=== PATIENT | female | born 1950 | race Caucasian/White ===

== ENCOUNTER 2017-02-24 10:04 | Inpatient (IN) | payer OTHER, MEDICARE, MEDICAID ==
[2017-02-24] VITALS (12 sets, daily range): BP systolic 102–148; BP diastolic 61–72
[~2017-02-24] VITALS: Ht 162.6 cm; Wt 167.9 kg
[2017-02-24 11:41] LABS: BASOPHIL % 0.2 % (0-2); PLATELET COUNT 215 x10^3mcL (130-400)
[2017-02-24 12:01] LABS: CALCIUM 9.3 mg/dL (8.5-10.1); CARBON DIOXIDE 25.9 mmol/L (21-32); CREATININE SERUM 1.3 mg/dL (0.6-1.0); POTASSIUM SERUM 4.4 mmol/L (3.5-5.1)
[2017-02-24 12:13] LABS: ALBUMIN 3.6 g/dL (3.4-5.0); BILIRUBIN TOTAL 0.54 mg/dL (0.20-1.00); T4(THYROXINE) 5.4 ug/dL (4.7-13.3); TOTAL PROTEIN, SERUM 8.2 g/dL (6.4-8.2)
[2017-02-24] MEDS ORDERED: ATORVASTATIN CA20 M1 PO (12:40)
[2017-02-24] MEDS ORDERED: CEFDINIR300 M1 PO (12:40)
[2017-02-24] MEDS ORDERED: KEFLEX500 M1 PO (12:41)
[2017-02-24] MEDS ORDERED: CELEBREX200 MG PO (12:41)
[2017-02-24] MEDS ORDERED: ZYRTEC10 MG PO (12:41)
[2017-02-24] MEDS ORDERED: ENALAPRIL MALEA20 MG PO (12:42)
[2017-02-24] MEDS ORDERED: DIG125 PO (12:42)
[2017-02-24] MEDS ORDERED: COLACE100 MG PO (12:42)
[2017-02-24] MEDS ORDERED: FLONS (12:43)
[2017-02-24] MEDS ORDERED: LASIX40 MG PO (12:44)
[2017-02-24] MEDS ORDERED: MONTELUKAST SOD10 M1 PO (12:45)
[2017-02-24] MEDS ORDERED: METOPROLOL TART25 M1 PO (12:45)
[2017-02-24] MEDS ORDERED: OMEPRAZOLE40 M1 PO (12:45)
[2017-02-24] MEDS ORDERED: NORCO1 TA2 PO (12:45)
[2017-02-24] MEDS ORDERED: DITROPAN XL5 MG PO (12:46)
[2017-02-24] MEDS ORDERED: XENICAL120 MG PO (12:46)
[2017-02-24] MEDS ORDERED: ZANTAC 150150 MG PO (12:47)
[2017-02-24] MEDS ORDERED: SEREVENT D0.046 MG/1 IH (12:47)
[2017-02-24] MEDS ORDERED: PULMICORT180 MCG/Ac INH (12:47)
[2017-02-24] MEDS ORDERED: PAXIL10 MG PO (12:47)
[2017-02-24] MEDS ORDERED: DYA PO (12:48)
[2017-02-24] MEDS ORDERED: THE300 PO (12:48)
[2017-02-24] MEDS ORDERED: VENTOLIN H0.09 MG/A1 IH (12:49)
[2017-02-24] MEDS ORDERED: XARELTO10 M1 PO (12:49)
[2017-02-24 16:00] LABS: FREE T4 0.96 ng/dL (0.76-1.46); FREE THYROXINE INDEX 1.8 ug/dL (1.4-4.5); T3 TOTAL 0.94 ng/mL; T4(THYROXINE) 5.6 ug/dL (4.7-13.3)
[2017-02-25] VITALS (18 sets, daily range): BP systolic 91–153; BP diastolic 52–107
[2017-02-25 05:46] LABS: PLATELET COUNT 181 x10^3mcL (130-400)
[2017-02-25 05:54] LABS: CALCIUM 8.5 mg/dL (8.5-10.1); CREATININE SERUM 1.1 mg/dL (0.6-1.0); POTASSIUM SERUM 4.8 mmol/L (3.5-5.1)
[2017-02-25 05:59] LABS: BASOPHIL % 0 % (0-2); RED CELL DISTRIBUTION WIDTH 16.8 % (11.5-14.5)
[2017-02-25 16:06] LABS: UA SPECIFIC GRAVITY >=1.030 (1.005-1.035); microscopic required? YES; urine erythrocyte 3+ (NEGATIVE)
[2017-02-25 16:29] LABS: AMPHETAMINE QUAL UR NONE DETECTED (NEG <=1000)
[2017-02-26] VITALS (18 sets, daily range): BP systolic 104–147; BP diastolic 63–83
[2017-02-26 05:46] LABS: PLATELET COUNT 163 x10^3mcL (130-400); RED CELL DISTRIBUTION WIDTH 16.9 % (11.5-14.5)
[2017-02-26 05:47] LABS: BASOPHIL % 0.5 % (0-2)
[2017-02-26 05:48] LABS: CALCIUM 8.6 mg/dL (8.5-10.1); CARBON DIOXIDE 25.3 mmol/L (21-32); CREATININE SERUM 1.1 mg/dL (0.6-1.0); PHOSPHOROUS 2.7 mg/dL (2.5-4.9); POTASSIUM SERUM 4.5 mmol/L (3.5-5.1)
[2017-02-27] VITALS (17 sets, daily range): BP systolic 97–136; BP diastolic 48–86
[2017-02-27 05:31] LABS: BASOPHIL % 1.6 % (0-2); PLATELET COUNT 159 x10^3mcL (130-400)
[2017-02-27 05:36] LABS: RED CELL DISTRIBUTION WIDTH 15.5 % (11.5-14.5)
[2017-02-27 05:54] LABS: CALCIUM 8.7 mg/dL (8.5-10.1); CARBON DIOXIDE 25.2 mmol/L (21-32); CHLORIDE SERUM 103 mmol/L (98-107); CREATININE SERUM 0.9 mg/dL (0.6-1.0); GFR1 > 60 mL/min; GLUCOSE SERUM 159 mg/dL (74-106); MAGNESIUM 1.6 mg/dL (1.8-2.4); PHOSPHOROUS 2.2 mg/dL (2.5-4.9); POTASSIUM SERUM 3.8 mmol/L (3.5-5.1); SODIUM SERUM 136 mmol/L (136-145)
[2017-02-28] VITALS (17 sets, daily range): BP systolic 98–149; BP diastolic 50–82
[2017-02-28 05:50] LABS: BASOPHIL % 0.5 % (0-2); CALCIUM 8.6 mg/dL (8.5-10.1); CARBON DIOXIDE 26.8 mmol/L (21-32); CHLORIDE SERUM 102 mmol/L (98-107); CREATININE SERUM 0.8 mg/dL (0.6-1.0); GFR1 > 60 mL/min; GLUCOSE SERUM 166 mg/dL (74-106); MAGNESIUM 1.7 mg/dL (1.8-2.4); PHOSPHOROUS 2.4 mg/dL (2.5-4.9); PLATELET COUNT 153 x10^3mcL (130-400); POTASSIUM SERUM 3.4 mmol/L (3.5-5.1); SODIUM SERUM 137 mmol/L (136-145)
[2017-02-28 05:54] LABS: RED CELL DISTRIBUTION WIDTH 16.4 % (11.5-14.5)
[2017-03-01] VITALS (19 sets, daily range): BP systolic 83–151; BP diastolic 48–86
[2017-03-01 05:31] LABS: BASOPHIL % 0.7 % (0-2); PLATELET COUNT 179 x10^3mcL (130-400)
[2017-03-01 05:33] LABS: RED CELL DISTRIBUTION WIDTH 16.1 % (11.5-14.5)
[2017-03-01 05:43] LABS: CALCIUM 8.9 mg/dL (8.5-10.1); CARBON DIOXIDE 28.6 mmol/L (21-32); CHLORIDE SERUM 102 mmol/L (98-107); CREATININE SERUM 0.9 mg/dL (0.6-1.0); GFR1 > 60 mL/min; GLUCOSE SERUM 131 mg/dL (74-106); MAGNESIUM 1.8 mg/dL (1.8-2.4); PHOSPHOROUS 3.1 mg/dL (2.5-4.9); POTASSIUM SERUM 3.9 mmol/L (3.5-5.1); SODIUM SERUM 137 mmol/L (136-145)
[2017-03-02] VITALS (17 sets, daily range): BP systolic 98–159; BP diastolic 58–89
[2017-03-02 05:39] LABS: BASOPHIL % 0.6 % (0-2); PLATELET COUNT 235 x10^3mcL (130-400)
[2017-03-02 06:01] LABS: CALCIUM 9.1 mg/dL (8.5-10.1); CARBON DIOXIDE 30.7 mmol/L (21-32); CHLORIDE SERUM 101 mmol/L (98-107); CREATININE SERUM 0.9 mg/dL (0.6-1.0); GFR1 > 60 mL/min; GLUCOSE SERUM 145 mg/dL (74-106); MAGNESIUM 1.9 mg/dL (1.8-2.4); PHOSPHOROUS 3.3 mg/dL (2.5-4.9); POTASSIUM SERUM 3.6 mmol/L (3.5-5.1); SODIUM SERUM 139 mmol/L (136-145)
[2017-03-03] VITALS (19 sets, daily range): BP systolic 83–153; BP diastolic 48–98
[2017-03-03 07:15] LABS: CALCIUM 9.1 mg/dL (8.5-10.1); CARBON DIOXIDE 28.6 mmol/L (21-32); CHLORIDE SERUM 103 mmol/L (98-107); CREATININE SERUM 0.8 mg/dL (0.6-1.0); GFR1 > 60 mL/min; GLUCOSE SERUM 129 mg/dL (74-106); PHOSPHOROUS 3.2 mg/dL (2.5-4.9); POTASSIUM SERUM 3.6 mmol/L (3.5-5.1); SODIUM SERUM 139 mmol/L (136-145)
[2017-03-03 09:23] LABS: PLATELET COUNT 224 x10^3mcL (130-400); RED CELL DISTRIBUTION WIDTH 16.1 % (11.5-14.5)
[2017-03-03 09:24] LABS: BASOPHIL % 0.6 % (0-2)
[2017-03-04] VITALS (17 sets, daily range): BP systolic 91–167; BP diastolic 46–99
[2017-03-04 05:30] LABS: BASOPHIL % 1.1 % (0-2); PLATELET COUNT 252 x10^3mcL (130-400)
[2017-03-04 05:39] LABS: CALCIUM 8.8 mg/dL (8.5-10.1); CARBON DIOXIDE 29.8 mmol/L (21-32); CHLORIDE SERUM 102 mmol/L (98-107); CREATININE SERUM 0.8 mg/dL (0.6-1.0); GFR1 > 60 mL/min; GLUCOSE SERUM 140 mg/dL (74-106); MAGNESIUM 1.9 mg/dL (1.8-2.4); PHOSPHOROUS 3.3 mg/dL (2.5-4.9); POTASSIUM SERUM 3.4 mmol/L (3.5-5.1); SODIUM SERUM 138 mmol/L (136-145)
[2017-03-05] VITALS (18 sets, daily range): BP systolic 97–153; BP diastolic 52–86
[2017-03-05 05:02] LABS: CALCIUM 8.9 mg/dL (8.5-10.1); CARBON DIOXIDE 31.7 mmol/L (21-32); CHLORIDE SERUM 104 mmol/L (98-107); CREATININE SERUM 0.9 mg/dL (0.6-1.0); GFR1 > 60 mL/min; GLUCOSE SERUM 92 mg/dL (74-106); PHOSPHOROUS 3.1 mg/dL (2.5-4.9); POTASSIUM SERUM 3.4 mmol/L (3.5-5.1); SODIUM SERUM 141 mmol/L (136-145)
[2017-03-05 05:04] LABS: BASOPHIL % 1.2 % (0-2); PLATELET COUNT 253 x10^3mcL (130-400); RED CELL DISTRIBUTION WIDTH 15.9 % (11.5-14.5)
[2017-03-06] VITALS (19 sets, daily range): BP systolic 85–147; BP diastolic 43–91
[2017-03-06 05:34] LABS: BASOPHIL % 0.2 % (0-2); PLATELET COUNT 288 x10^3mcL (130-400)
[2017-03-06 05:41] LABS: RED CELL DISTRIBUTION WIDTH 16.2 % (11.5-14.5)
[2017-03-06 05:53] LABS: CALCIUM 8.8 mg/dL (8.5-10.1); CARBON DIOXIDE 32.1 mmol/L (21-32); CHLORIDE SERUM 102 mmol/L (98-107); CREATININE SERUM 0.9 mg/dL (0.6-1.0); GFR1 > 60 mL/min; GLUCOSE SERUM 143 mg/dL (74-106); PHOSPHOROUS 2.8 mg/dL (2.5-4.9); POTASSIUM SERUM 3.2 mmol/L (3.5-5.1); SODIUM SERUM 135 mmol/L (136-145)
[2017-03-07] VITALS (15 sets, daily range): BP systolic 82–167; BP diastolic 49–99; Ht 162.6 cm; Wt 167.9 kg
[2017-03-07 06:18] LABS: BASOPHIL % 0.6 % (0-2); PLATELET COUNT 274 x10^3mcL (130-400)
[2017-03-07 06:47] LABS: RED CELL DISTRIBUTION WIDTH 15.7 % (11.5-14.5)
[2017-03-07 07:09] LABS: CALCIUM 8.4 mg/dL (8.5-10.1); CARBON DIOXIDE 29.9 mmol/L (21-32); CHLORIDE SERUM 105 mmol/L (98-107); CREATININE SERUM 0.7 mg/dL (0.6-1.0); GFR1 > 60 mL/min; GLUCOSE SERUM 109 mg/dL (74-106); MAGNESIUM 2.1 mg/dL (1.8-2.4); PHOSPHOROUS 3.2 mg/dL (2.5-4.9); POTASSIUM SERUM 3.2 mmol/L (3.5-5.1); SODIUM SERUM 140 mmol/L (136-145)
[2017-03-08] VITALS (9 sets, daily range): BP systolic 110–165; BP diastolic 63–92
[2017-03-08 06:01] LABS: BASOPHIL % 0.4 % (0-2); PLATELET COUNT 308 x10^3mcL (130-400)
[2017-03-08 06:02] LABS: RED CELL DISTRIBUTION WIDTH 15.5 % (11.5-14.5)
[2017-03-08 06:11] LABS: CARBON DIOXIDE 29.2 mmol/L (21-32); CHLORIDE SERUM 104 mmol/L (98-107); CREATININE SERUM 0.8 mg/dL (0.6-1.0); GFR1 > 60 mL/min; GLUCOSE SERUM 131 mg/dL (74-106); MAGNESIUM 1.9 mg/dL (1.8-2.4); PHOSPHOROUS 3.3 mg/dL (2.5-4.9); POTASSIUM SERUM 3.1 mmol/L (3.5-5.1); SODIUM SERUM 140 mmol/L (136-145)
[2017-03-08] MEDS ORDERED: COR200 PO (13:08)
[2017-03-08] MEDS ORDERED: LOP50 PO (13:09)
== END 2017-03-08 14:44 | disposition short-term general hospital (02) | DRG 207 ==
LOC: ED 10:04 → IC 11:40
PROVIDERS: Emergency Medicine; Family Medicine; Student in an Organized Health Care Education/Training Program
PROC: 5A1955Z Respiratory Ventilation, Greater than 96 Consecutive Hours (ICD-10-PCS; principal; 2017-02-24)
PROC: 0BH17EZ Insertion of Endotracheal Airway into Trachea, Via Natural or Artificial Opening (ICD-10-PCS; 2017-02-24)
PROC: 05HN33Z Insertion of Infusion Device into Left Internal Jugular Vein, Percutaneous Approach (ICD-10-PCS; 2017-02-24)
PROC: B544ZZA Ultrasonography of Left Jugular Veins, Guidance (ICD-10-PCS; 2017-02-24)
DX: J96.22 Acute and chronic respiratory failure with hypercapnia (principal); J69.0 Pneumonitis due to inhalation of food and vomit; E43 Unspecified severe protein-calorie malnutrition; N17.0 Acute kidney failure with tubular necrosis; J44.1 Chronic obstructive pulmonary disease with (acute) exacerbation; Z68.44 Body mass index [BMI] 60.0-69.9, adult; E87.1 Hypo-osmolality and hyponatremia; D68.69 Other thrombophilia; J96.21 Acute and chronic respiratory failure with hypoxia; J11.1 Influenza due to unidentified influenza virus with other respiratory manifestations; I10 Essential (primary) hypertension; E11.9 Type 2 diabetes mellitus without complications; D75.1 Secondary polycythemia; I48.2 Chronic atrial fibrillation; E66.01 Morbid (severe) obesity due to excess calories; Z87.891 Personal history of nicotine dependence; Z79.01 Long term (current) use of anticoagulants
CPT/HCPCS: 31500; 36556; 36600; 82962; 83880; 84439; 87804; 90732; A4628; C9113; J0282; J1642; J1940; J1956; J2060; J2250; J2270; J2543; J2704; J2930; J3475; J3480; J3490; J7030; J7040; J7620; J7626; Q0092